=== PATIENT | female | born 1995 | race Caucasian/White ===

== ENCOUNTER → 2016-02-17 | Outpatient (CLI) | payer OTHER | LOC: BHSO 13:46 | DX: F31.32 Bipolar disorder, current episode depressed, moderate (principal) ==

== ENCOUNTER → 2016-02-22 | Outpatient (CLI) | payer OTHER | LOC: BHSO 12:39 | DX: F31.11 Bipolar disorder, current episode manic without psychotic features, mild (principal) ==

== ENCOUNTER → 2016-03-02 | Outpatient (CLI) | payer OTHER | LOC: BHSO 14:43 | DX: F33.2 Major depressive disorder, recurrent severe without psychotic features (principal) ==

== ENCOUNTER → 2016-03-27 | Outpatient (CLI) | payer OTHER | LOC: BHSO 14:01 | DX: F31.4 Bipolar disorder, current episode depressed, severe, without psychotic features (principal) ==